=== PATIENT | male | born 1975 | race Caucasian/White ===

== ENCOUNTER 2021-04-27 11:41 | Emergency (ER) | payer SELFPAY ==
[~2021-04-27] VITALS: Ht 175.3 cm; Wt 82.0 kg
[2021-04-27] MEDS ORDERED: KETOROLAC 30MG/ML VIAL IV STA (11:47)
[2021-04-27] MEDS ORDERED: SODIUM CHLORIDE 0.9% 1,000 ML IV ONE (12:00)
[2021-04-27 12:31] LABS: BASOPHILS % 0.7 % (0.0-2.0); EOSINOPHILS % 3.3 % (0.0-5.0); HEMATOCRIT. 42.9 % (42.0-52.0); HEMOGLOBIN. 14.9 g/dL (14.0-18.0); LYMPHOCYTES % 12.1 % (20.0-50.0); MEAN CORPUSCULAR HEMOGLOBIN 30.6 pg (28.0-32.0); MEAN CORPUSCULAR VOLUME 87.9 fL (80.0-94.0); MEAN PLATELET VOLUME 7.3 fl (7.4-10.4); MONOCYTES % 6.7 % (2.0-8.0); NEUTROPHILS % 77.2 % (40.0-76.0); PLATELET 329 x1000/uL (130-400); RED BLOOD CELL COUNT 4.89 mill/uL (4.7-6.1); RED CELL DISTRIBUTION WIDTH 13.2 % (11.6-14.6)
[2021-04-27 12:38] LABS: CHLORIDE 107 mEq/L (98-107)
[2021-04-27 12:42] LABS: ETHANOL BLOOD < 10 mg/dL
[2021-04-27] MEDS ORDERED: MORPHINE SULFATE 4 MG/ML CPJ (NOT FOR IM USE) IV NR (12:46)
[2021-04-27] MEDS ORDERED: ONDANSETRON HCL 4MG/2ML INJ IV NR (13:00)
[2021-04-27] MEDS ORDERED: SODIUM CHLORIDE 0.9% 1000ML BAG (SEPSIS BOLUS) IV ONE (13:00)
[2021-04-27] MEDS ORDERED: SODIUM CHLORIDE 0.9% IV SCH (13:00)
[2021-04-27] MEDS ORDERED: TAMSULOSIN HCL 0.4MG SR CAPSULE PO NR (15:00)
[2021-04-27 16:48] LABS: CLARITY URINE CLOUDY (CLEAR); COLOR URINE YELLOW (YELLOW); KETONES URINE NEGATIVE (NEGATIVE); LEUKOCYTE ESTERASE URINE NEGATIVE (NEGATIVE); NITRITE URINE NEGATIVE (NEGATIVE); OCCULT BLOOD URINE 3+ (NEGATIVE); PH URINE 5.5 (4.5-8.0); PROTEIN URINE TRACE (NEGATIVE); SPECIFIC GRAVITY URINE 1.019 (1.005-1.030); UROBILINOGEN URINE 0.2 E.U./dL (0.2-1.0)
[2021-04-27] MEDS ORDERED: CEPHALEXIN 250MG CAPSULE PO NR (17:00)
[2021-04-27] MEDS ORDERED: IBUP-2029 MT (17:01)
[2021-04-27] MEDS ORDERED: CEPH500T MT (17:01)
[2021-04-27] MEDS ORDERED: HYDR-4001 MT (17:01)
[2021-04-27] MEDS ORDERED: TAMS-11 MT (17:01)
[2021-04-27] MEDS ORDERED: ONDA4TAB5 MT (17:07)
[2021-04-27] MEDS ORDERED: HYDROCODONE/ACETAMINOPHEN 5/325MG TABLET PO ONE (17:30)
[2021-04-27 17:32] VITALS: BP 138/82
== END 2021-04-27 17:35 | disposition home or self-care (01) ==
LOC: ER 11:41
DX: N13.2 Hydronephrosis with renal and ureteral calculous obstruction (principal)
CPT/HCPCS: 36415; 74176; 80053; 80320; 81003; 83605; 85025; 87040; 87086; 96374; 99285; J1885; J7030; J2270; J2405; G0480